=== PATIENT | male | born 2000 | race Caucasian/White ===

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

== ENCOUNTER 2020-05-10 15:35 | Emergency (ER) | payer BC, OTHER ==
--- NOTE | 2020-05-10 15:51 | ED.PDOC ---
History of Present Illness - General Time Seen by Provider: 05/10/20 15:50 - History of Present Illness Initial Comments: While driving the patient's developed feeling of hot and cold, generalized tingling, fatigue, mild dyspnea, near syncope but no actual syncope. No neurological deficits. Patient had carpal spasm. Patient has a history of similar symptoms in the past except that this episode involve carpal spasm which is new for the patient. Duration of symptoms was 30 minutes and they subsided 15 minutes ago. Timing/Duration: 1/2 hour Severity: moderate Improving Factors: nothing Worsening Factors: nothing Associated Symptoms: shortness of breath Review of Systems - Review of Systems Constitutional: States: no symptoms reported EENTM: States: no symptoms reported Respiratory: States: short of breath - Mild, resolved Cardiology: States: no symptoms reported Gastrointestinal/Abdominal: States: no symptoms reported Genitourinary: States: no symptoms reported Musculoskeletal: States: no symptoms reported Skin: States: no symptoms reported Neurological: States: tingling - Generalized, resolved Endocrine: States: no symptoms reported Hematologic/Lymphatic: States: no symptoms reported Family Medical History - Family History Mother Family History: Unknown Living Status: Still Living Physical Exam - Physical Exam General Appearance: Alert, Anxious Eye Exam: bilateral normal Ears, Nose, Throat: hearing grossly normal, normal ENT inspection Neck: non-tender, full range of motion, supple Respiratory: normal breath sounds Cardiovascular/Chest: normal peripheral pulses Gastrointestinal/Abdominal: normal bowel sounds, non tender, soft Back Exam: normal inspection Neurologic: acquisition analyst II-XII nml as tested, no motor/sensory deficits, alert, normal mood/affect, other - Calm without obvious anxiety at time of examination Skin Exam: normal color Lymphatic: no adenopathy Progress - Progress Progress: 05/10/20 16:00 Ativan 1 mg p.o. given 05/10/20 16:04 Explained all symptoms the patient and his mother. They are in agreement with outpatient disposition. - Results/Orders Results/Orders: Vital Signs - 24 hr 05/10/20 05/10/20 16:02 16:25 Temperature 97.8 F 97.8 F Pulse Rate [ 102 H 102 H Left Radial] Respiratory 16 16 Rate Blood Pressure 137/84 137/84 [Left Arm] O2 Sat by Pulse 99 99 Oximetry Departure - Departure Clinical Impression: Panic attack, Anxiety Time of Disposition: 16:00 Disposition: Discharge to Home or Self Care Condition: Good Departure Forms: ED Discharge - Pt. Copy, Patient Portal Self Enrollment Instructions: Anxiety, Adult (DC), Panic Disorder (DC) Diet: resume usual diet Referrals: Suhail Fall MD [Primary Care Provider] - 1-2 Weeks Additional Instructions: If you develop recurrent symptoms breathing to run out of a paper bag. See your doctor for further care if symptoms persist or worsen.
[2020-05-10] MEDS ORDERED: LORazepam 0.5 MG TAB PO ONE (16:00)
[2020-05-10 16:08] VITALS: BP 137/84; TEMP 97.8; O2SAT 99
== END 2020-05-10 16:23 | disposition home or self-care (01) ==
LOC: ER 15:35
DX: F41.0 Panic disorder [episodic paroxysmal anxiety] (principal); R55 Syncope and collapse